=== PATIENT | female | born 1950 | race Hispanic/Latino ===

== ENCOUNTER 2019-05-20 02:22 | Emergency (ER) | payer MEDICARE ==
--- NOTE | 2019-05-20 02:37 | Emergency Department Report ---
- General Stated complaint: WEAKNESS Time Seen by Provider: 05/20/19 02:27 Source: patient, EMS Mode of arrival: Stretcher Limitations: Physical Limitation - History of Present Illness Initial comments: Patient is a 68-year-old female presents to the emergency with generalized weakness. Patient states that her weakness started 1 week ago. Patient states she also developed left facial weakness one week ago. Patient states she also developed left eye droop one week ago. Patient states her symptoms are worsening. Patient states she is always had left-sided weakness for approximately 5 years. Patient denies chest pain. Patient states his past medical history hypertension and her blood pressure is better controlled lately. Patient states she is compliant with all of her medications. MD Complaint: focal weakness -: Sudden, week(s) Consistency: constant, other (worsening) Improves with: none Worsens with: none Associated Symptoms: denies other symptoms. denies: chest pain, confusion, dark stools, diaphoresis, dysuria, easy bruising, fever/chills, headaches, loss of appetite, nausea/vomiting, myalgias, rash, shortness of breath, syncope - Related Data Allergies Allergy/AdvReac Type Severity Reaction Status Date / Time No Known Allergies Allergy Unverified 05/20/19 06:57 ED Review of Systems ROS: Stated complaint: WEAKNESS Other details as noted in HPI Constitutional: weakness. denies: chills, fever Eyes: denies: eye pain, eye discharge, vision change ENT: denies: ear pain, throat pain Respiratory: denies: cough, shortness of breath, wheezing Cardiovascular: denies: chest pain, palpitations Endocrine: no symptoms reported Gastrointestinal: denies: abdominal pain, nausea, diarrhea Genitourinary: denies: urgency, dysuria, discharge Musculoskeletal: denies: back pain, joint swelling, arthralgia Skin: denies: rash, lesions Neurological: weakness. denies: headache, paresthesias Psychiatric: denies: anxiety, depression Hematological/Lymphatic: denies: easy bleeding, easy bruising ED Past Medical Hx - Past Medical History Previous Medical History?: Yes Hx Hypertension: Yes Hx COPD: Yes - Surgical History Past Surgical History?: No - Family History Family history: no significant - Social History Smoking Status: Current Every Day Smoker Substance Use Type: None ED Physical Exam - General Limitations: Physical Limitation General appearance: alert, in no apparent distress - Head Head exam: Present: atraumatic, normocephalic - Eye Eye exam: Present: normal appearance Pupils: Present: unequal - ENT ENT exam: Present: mucous membranes moist - Neck Neck exam: Present: normal inspection - Respiratory Respiratory exam: Present: normal lung sounds bilaterally. Absent: respiratory distress - Cardiovascular Cardiovascular Exam: Present: regular rate, normal rhythm. Absent: systolic murmur, diastolic murmur, rubs, gallop - GI/Abdominal GI/Abdominal exam: Present: soft, normal bowel sounds. Absent: distended, tenderness, guarding - Rectal Rectal exam: Present: deferred - Extremities Exam Extremities exam: Present: normal inspection, full ROM - Back Exam Back exam: Present: normal inspection - Neurological Exam Neurological exam: Present: alert, oriented X3 - Psychiatric Psychiatric exam: Present: normal affect, normal mood - Skin Skin exam: Present: warm, dry, intact, normal color. Absent: rash - Assessment Assessment Interval: Baseline - Level of Consciousness 1a. Level of Consciousness: alert/keenly responsive - LOC Questions 1b. LOC Questions: answers both correctly - LOC Command 1c. LOC Commands: performs tasks correctly - Best Gaze 2. Best Gaze: normal - Visual 3. Visual: no visual loss - Facial Palsy 4. Facial Palsy: partial paralysis - Motor Arm 5a. Motor Arm Left: no drift 5b. Motor Arm Right: no drift - Motor Leg 6a. Motor Leg Left: no drift 6b. Motor Leg Right: no drift - Limb Ataxia 7. Limb Ataxia: absent - Sensory 8. Sensory: normal - Best Language 9. Best Language: no aphasia - Dysarthria 10. Dysarthria: normal - Extinction and Inattention 11. Extinction/Inattention: no abnormality - Scoring Total Score: 2 Stroke Severity: Minor Stroke ED Course Vital Signs 05/20/19 05/20/19 05/20/19 02:30 02:31 02:52 Temperature 98.7 F 98.7 F Pulse Rate 89 65 Respiratory 18 Rate Blood Pressure 212/93 Blood Pressure 198/75 [Left] O2 Sat by Pulse 98 Oximetry 05/20/19 05/20/19 05/20/19 03:32 03:45 03:59 Temperature Pulse Rate 71 62 61 Respiratory Rate Blood Pressure Blood Pressure 212/70 229/56 232/66 [Left] O2 Sat by Pulse Oximetry 05/20/19 05/20/19 05/20/19 04:13 04:16 04:30 Temperature Pulse Rate 62 60 65 Respiratory 19 17 20 Rate Blood Pressure 207/56 Blood Pressure [Left] O2 Sat by Pulse 97 97 97 Oximetry 05/20/19 05/20/19 05/20/19 04:46 05:00 05:15 Temperature Pulse Rate 64 65 75 Respiratory 18 19 20 Rate Blood Pressure 175/48 174/47 175/51 Blood Pressure [Left] O2 Sat by Pulse 97 97 97 Oximetry 05/20/19 05/20/19 05/20/19 05:30 05:45 06:00 Temperature Pulse Rate 65 65 64 Respiratory 18 18 18 Rate Blood Pressure 171/49 182/50 173/51 Blood Pressure [Left] O2 Sat by Pulse 97 97 97 Oximetry 05/20/19 05/20/19 06:15 06:30 Temperature Pulse Rate 65 77 Respiratory 18 11 L Rate Blood Pressure 165/53 153/59 Blood Pressure [Left] O2 Sat by Pulse 97 97 Oximetry - Reevaluation(s) Reevaluation #1: Initial evaluation done. Report received from EMS. Code stroke initiated. Neurology consultation. 05/20/19 02:27 Reevaluation #2: Discussed patient's case with family. Family states the patient's blood pressure has been controlled. Patient's blood pressure is 215/100. Patient was placed on nicardipine drip, to keep blood pressure less than 150. Patient will be given a Keppra dose. 05/20/19 04:09 05/20/19 07:07 Reevaluation #3: I discussed all results in place. Discussed plan of care with patient. Patient agrees with plan of care in transfer. Patient will be transferred to [facility]. 05/20/19 05:14 - Consultations Consultation #1: Discussed case with neurologist. Neurologist recommends CTA of the head for possible subarachnoid. 05/20/19 03:05 Consultation #2: I discussed case with [facility]. Dr. Martin has accepted the patient be transferred to [facility]. 05/20/19 05:03 ED Medical Decision Making - Lab Data Result diagrams: 05/20/19 03:03 05/20/19 03:03 - EKG Data -: EKG Interpreted by Ca EKG shows normal: sinus rhythm, axis, intervals, QRS complexes, ST-T waves Rate: normal - Radiology Data Radiology results: report reviewed CT HEAD WITHOUT CONTRAST INDICATION: STROKE PROTOCOL!! LEFT sided neuro deficit.. TECHNIQUE: All CT scans at this location are performed using CT dose reduction for ALARA by means of automated exposure control. COMPARISON: None available. FINDINGS: HEMORRHAGE: There is acute subarachnoid hemorrhage within the suprasellar c istern extending into the central left temporal and inferior left frontal sulci. EXTRA-AXIAL SPACES: Normal in size and morphology for the patient's age. VENTRICULAR SYSTEM: Normal in size and morphology for the patient's age. BRAIN PARENCHYMA: Bilateral basal ganglia chronic lacunar infarcts are noted. There are deep white matter periventricular hypodensities are likely due to microangiopathy. There is effacement of sulci within the inferior left frontal lobe with loss of stock-white differentiation. MIDLINE SHIFT OR HERNIATION: None. ORBITS: The bilateral optic nerves appear thickened. SOFT TISSUES OF HEAD: Normal. CALVARIUM: Normal. VISUALIZED PARANASAL SINUSES AND MASTOID AIR CELLS: Clear. ADDITIONAL FINDINGS: None. IMPRESSION: 1. Acute subarachnoid hemorrhage in the suprasellar cistern extending into the left frontal and temporal sulci. This could be due to ruptured aneurysm. CTA head should be considered. 2. Sulcal effacement in the inferior left frontal lobe with poor stock-white differentiation can be seen in the setting of early ischemia. CT angio head INDICATION / CLINICAL INFORMATION: 68 years Female; STROKE PROTOCOL!! LEFT sided neuro deficit. LEFT eye won't open Omnipaque 350 / 100ml's was used for this exam.. TECHNIQUE: Thin cut axial images obtained through the head during IV bolus contrast administration. Sagittal, coronal, and 3 plane MIP reconstructions performed by the technologist. NASCET type cri teria used evaluate stenoses. Automated exposure control utilized for radiation reduction purposes. COMPARISON: CT head - 05/20/2019 FINDINGS: INTERNAL CAROTID ARTERIES: There is suggestion of a focal area of narrowing in the anterior genu of the cavernous portion of the right internal carotid artery. No significant narrowing seen of visualized portions of the left internal carotid artery. VERTEBROBASILAR SYSTEM: The proximal basilar artery is not well visualized on this exam and may be congenitally absent. However, the vertebral arteries do appear to connect leftward of midline at the level of the medulla, which raises the possibility of a proximal, long segment occlusion. Given the findings at the origin of the left subclavian artery, I would not be surprised if there is retrograde flow in the left vertebral artery. There are focal areas of mild narrowing in both distal vertebral arteries, most likely related to atherosclerotic disease. DISTAL BRANCHES: Distal branches of the anterior, middle, and posterior cerebral arteries are fairly symmetric in appearance and number. There is a focal area of fusiform dilatation in proximal MCA trifurcation branch on the right. A few areas of focal narrowing are seen in the MCA trifurcations bilaterally, as well as in the proximal A2 segment of the right anterior cerebral artery. ANEURYSM: There is a 4-5 mm posterior communicating artery aneurysm on the left, most likely responsible for patient's subarachnoid hemorrhage, when reviewing the recent head CT. Concerning the right internal carotid artery, there is fusiform dilatation of the vessel in the cavernous portion, as well as the communicating portions, with the vessel measuring up to 6-7 mm in maximum dimension. Similar type findings seen to a lesser degree in the cavernous portion of the left internal carotid artery. ADDITIONAL FINDINGS: Mucous retention cyst/polyps in the left maxillary antrum. There is mild mucosal thickening in the ethmoids. IMPRESSION: 1. 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 2. Areas of fusiform dilatation in both internal carotid arteries, as well as a right MCA trifurcation vessel. 3. 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 I would question the possibility of retrograde flow in the left vertebral artery. 4. Significant narrowing suggested in the anterior genu of the cavernous portion of the right internal carotid artery. CT angio neck INDICATION / CLINICAL INFORMATION: 68 years Female; STROKE PROTOCOL!! LEFT sided neuro deficit. LEFT eye won't open. TECHNIQUE: Thin cut axial images obtained through the head during IV bolus contrast administration. Sagittal, coronal, and 3 plane MIP reconstructions performed by the technologist. NASCET type criteria used evaluate stenoses. All CT scans at this location are performed using CT dose reduction for ALARA by means of automated exposure control. COMPARISON: None available. FINDINGS: ARCH: Bovine arch configuration noted. Significant atherosclerotic disease seen in the arch and great vessels. There is significant atherosclerotic disease at the origin of the left subclavian artery, most likely hemodynamically significant. Fairly significant atherosclerotic disease is seen in the left common carotid artery just distal to its origin. Focal area of mild narrowing is seen in the proximal right innominate artery as well. CAROTID ARTERIES: The visualized common and internal carotid arteries are patent. There are areas of narrowing throughout the left common carotid artery related to atherosclerotic disease. None of the findings appear to be hemodynamically significant. Similar findings seen in the right common carotid artery. Surprisingly, only mild atherosclerotic disease is seen in both of the internal carotid arteries. VERTEBRAL ARTERIES: Slight right dominant vertebral system seen. There are areas of mild narrowing in the proximal, nondominant left vertebral artery, related to atherosclerotic disease. ADDITIONAL FINDINGS: Small nodule seen bilaterally in the thyroid lobes. Follow- up with ultrasound as clinically warranted. Mucous retention cyst/polyps in the left maxillary antrum. IMPRESSION: Significant atherosclerotic disease seen in the great vessels, as described above, particularly at the origin of the left subclavian artery. - Medical Decision Making Patient is a 68-year-old female XS emergency with generalized weakness and left- sided facial droop. Code stroke initiated mutely upon arrival. Patient has plain CT done of the head and it showed a subarachnoid hemorrhage. Patient had a CTA of the head which confirmed the ruptured aneurysm. Patient being transferred to [facility] for neurosurgery support. Patient also found to have elevated low-pressure and blood pressure consistent with malignant hypertension and patient was placed on nicardipine drip. Patient also given Keppra for seizure prevention. Patient slabs since unremarkable. Patient will be transferred via ground EMS. - Differential Diagnosis ICH, SDH. SAH. CVA. Weakness, facial droop Critical Care Time: Yes Critical care time in (mins) excluding proc time.: 55 Critical care attestation.: If time is entered above; I have spent that time in minutes in the direct care of this critically ill patient, excluding procedure time. 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
--- NOTE | 2019-05-20 02:58 | Emergency Department Report ---
ED Neuro Deficit HPI - General Chief Complaint: Neuro Symptoms/Deficit Stated Complaint: WEAKNESS Time Seen by Provider: 05/20/19 02:27 Source: patient, EMS Mode of arrival: Stretcher Limitations: Physical Limitation - History of Present Illness Initial Comments: [employer] [facility] Date of Service: 05/20/2019 02:35:27 Impression: RO Acute Ischemic Stroke Comments: 1 week of L facial droop and L CN3 palsy - DDx L midbrain stroke vs isolated CN3 palsy from nerve infarct vs CN3 palsy from aneurysm. Recommend admission for MRI/A head/neck and inpatient neuro consult. . Mechanism of Stroke: Possible Thromboembolic Possible Cardioembolic Small Vessel Disease Metrics: Last Known Well: 05/13/2019 12:00:00 [employer] Notification Time: 05/20/2019 02:34:54 Arrival Time: 05/20/2019 02:22:00 Stamp Time: 05/20/2019 02:35:27 Time First Login Attempt: 05/20/2019 02:42:25 Video Start Time: 05/20/2019 02:42:25 Symptoms: facial droop NIHSS Start Assessment Time: 05/20/2019 02:49:25 Patient is not a candidate for tPA. Patient was not deemed candidate for tPA thrombolytics because of Last Well Known Above 4.5 Hours. Video End Time: 05/20/2019 02:54:32 CT head showed no acute hemorrhage or acute core infarct. CT head was reviewed. Advanced imaging CTA head and neck obtained. ED Physician notified of diagnostic impression and management plan on 05/20/2019 02:54:34 Our recommendations are outlined below. Recommendations: Activate Stroke Protocol Admission/Order Set Stroke/Telemetry Floor Neuro Checks Bedside Swallow Eval DVT Prophylaxis IV Fluids, Normal Saline Head of Bed Below 30 Degrees Euglycemia and Avoid Hyperthermia (PRN Acetaminophen) start ASA if CT head is neg for hemorrhage. Recommended Scan: MRA Head and Neck Without Contrast When Available - Stroke Protocol Lipid Panel to Be Obtained, if Not Done in the Last Three Months Therapies: Physical Therapy, Occupational Therapy, Speech Therapy Assessment When Applicable Dysphaghia Screen: Swallow Evaluation, Bedside NPO Until Swallow Evaluation DVT prophylaxis: SCDs, Pneumatic Compression Disposition: Follow up with Teleneurology Follow up Sign Out: Discussed with Emergency Department Provider History of Present Illness: Patient is a 68 year old Female. 68 yo woman who fell 2 weeks ago and has left sided weakness since that time. She left eye is dilated and she is unable to open the left eye. CT head showed no acute hemorrhage or acute core infarct. CT head was reviewed. Examination: 1A: Level of Consciousness - Alert; keenly responsive + 0 1B: Ask Month and Age - Both Questions Right + 0 1C: Blink Eyes & Squeeze Hands - Performs Both Tasks + 0 2: Test Horizontal Extraocular Movements - Normal + 0 3: Test Visual Carballo - No Visual Loss + 0 4: Test Facial Palsy (Use Grimace if Obtunded) - Minor paralysis (flat nasolabial fold, smile asymetry) + 1 5A: Test Left Arm Motor Drift - No Drift for 10 Seconds + 0 5B: Test Right Arm Motor Drift - No Drift for 10 Seconds + 0 6A: Test Left Leg Motor Drift - No Drift for 5 Seconds + 0 6B: Test Right Leg Motor Drift - No Drift for 5 Seconds + 0 7: Test Limb Ataxia (FNF/Heel-Oliver) - No Ataxia + 0 8: Test Sensation - Normal; No sensory loss + 0 9: Test Language/Aphasia - Normal; No aphasia + 0 10: Test Dysarthria - Normal + 0 11: Test Extinction/Inattention - No abnormality + 0 NIHSS Score: 1 Patient was informed the Neurology Consult would happen via TeleHealth consult by way of interactive audio and video telecommunications and consented to rec eiving care in this manner. Due to the immediate potential for life-threatening deterioration due to underlying acute neurologic illness, I spent 35 minutes providing critical care. This time includes time for face to face visit via telemedicine, review of medical records, imaging studies and discussion of findings with providers, the patient and/or family. Dr Enmanuel [place] [employer] Case [id number] - Related Data Allergies/Adverse Reactions: Allergies Allergy/AdvReac Type Severity Reaction Status Date / Time Unable to Assess Allergy Unverified 05/20/19 02:37 ED Review of Systems ROS: Stated complaint: WEAKNESS Other details as noted in HPI Constitutional: weakness. denies: chills, fever Eyes: denies: eye pain, eye discharge, vision change ENT: denies: ear pain, throat pain Respiratory: denies: cough, shortness of breath, wheezing Cardiovascular: denies: chest pain, palpitations Endocrine: no symptoms reported Gastrointestinal: denies: abdominal pain, nausea, diarrhea Genitourinary: denies: urgency, dysuria, discharge Musculoskeletal: denies: back pain, joint swelling, arthralgia Skin: denies: rash, lesions Neurological: weakness. denies: headache, paresthesias Psychiatric: denies: anxiety, depression Hematological/Lymphatic: denies: easy bleeding, easy bruising ED Past Medical Hx - Past Medical History Hx Hypertension: Yes Hx Diabetes: Yes Additional medical history: Left FX - Social History Smoking Status: Unknown if ever smoked Substance Use Type: None ED Neuro Physical Exam - General Limitations: Physical Limitation General appearance: alert, in no apparent distress Suspected Stroke: Yes - NIHSS Assessment Interval: Baseline 1a. Level of Consciousness: alert/keenly responsive 1b. LOC Questions: answers both correctly 1c. LOC Commands: performs tasks correctly 2. Best Gaze: normal 3. Visual: no visual loss 4. Facial Palsy: minor paralysis 5b. Motor Arm Right: no drift 5a. Motor Arm Left: no drift 6a. Motor Leg Left: no drift 6b. Motor Leg Right: no drift 7. Limb Ataxia: absent 8. Sensory: normal 9. Best Language: no aphasia 10. Dysarthria: normal 11. Extinction/Inattention: no abnormality Total Score: 1 Stroke Severity: Minor Stroke ED Course Vital Signs 05/20/19 02:31 Pulse Rate 89 Blood Pressure 212/93 Critical care attestation.: If time is entered above; I have spent that time in minutes in the direct care of this critically ill patient, excluding procedure time. 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
--- NOTE | 2019-05-20 03:08 | Cat Scan Report ---
CT HEAD WITHOUT CONTRAST INDICATION: STROKE PROTOCOL!! LEFT sided neuro deficit.. TECHNIQUE: All CT scans at this location are performed using CT dose reduction for ALARA by means of automated e xposure control. COMPARISON: None available. FINDINGS: HEMORRHAGE: There is acute subarachnoid hemorrhage within the suprasellar cistern extending into the central left temporal and inferior left frontal sulci. EXTRA-AXIAL SPACES: Normal in size and morphology for the patient's age. VENTRICULAR SYSTEM: Normal in size and morphology for the patient's age. BRAIN PARENCHYMA: Bilateral basal ganglia chronic lacunar infarcts are noted. There are deep white ma tter periventricular hypodensities are likely due to microangiopathy. There is effacement of sulci wi thin the inferior left frontal lobe with loss of stock-white differentiation. MIDLINE SHIFT OR HERNIATION: None. ORBITS: The bilateral optic nerves appear thickened. SOFT TISSUES OF HEAD: Normal. CALVARIUM: Normal. VISUALIZED PARANASAL SINUSES AND MASTOID AIR CELLS: Clear. ADDITIONAL FINDINGS: None. IMPRESSION: 1. Acute subarachnoid hemorrhage in the suprasellar cistern extending into the left frontal and tempo ral sulci. This could be due to ruptured aneurysm. CTA head should be considered. 2. Sulcal effacement in the inferior left frontal lobe with poor stock-white differentiation can be se en in the setting of early ischemia. Code stroke Time of report 2:01 AM central Person receiving report: Dr. Thibodeaux Signer Name: Lawrence Payne MD Signed: 05/20/2019 3:04 AM Workstation Name: [id number]
[2019-05-20 03:23] LABS: Basophils # (Auto) 0.1 K/mm3 (0.0-0.1); Basophils % (Auto) 0.7 % (0.0-1.8); Eosinophils % (Auto) 0.2 % (0.0-4.3); Hematocrit 37.5 % (30.3-42.9); Hemoglobin 12.6 gm/dl (10.1-14.3); Mean Corpuscular HGB Conc 34 % (30-34); Mean Corpuscular Volume 88 fl (79-97); Monocytes # (Auto) 0.7 K/mm3 (0.0-0.8); Monocytes % (Auto) 5.4 % (0.0-7.3); Platelet Count 294 K/mm3 (140-440); Red Blood Count 4.26 M/mm3 (3.65-5.03); Red Cell Distribution Width 13.2 % (13.2-15.2)
[2019-05-20 03:32] LABS: INR 0.95 (0.87-1.13)
[2019-05-20 03:33] LABS: Partial Thromboplastin Time 25.1 Sec. (24.2-36.6)
[2019-05-20 03:34] LABS: BUN/Creatinine Ratio 28; Blood Urea Nitrogen 14 mg/dL (7-17); Calcium 9.2 mg/dL (8.4-10.2); Hemolysis Index 30
[2019-05-20] MEDS ORDERED: levETIRAcetam 1000 MG/NS 0.75% 1,000 MG/100 ML BAG IV ONE (04:08)
--- NOTE | 2019-05-20 04:45 | Cat Scan Report ---
CT angio neck INDICATION / CLINICAL INFORMATION: 68 years Female; STROKE PROTOCOL!! LEFT sided neuro deficit. LEFT eye won't open. TECHNIQUE: Thin cut axial images obtained through the head during IV bolus contrast administration. S agittal, coronal, and 3 plane MIP reconstructions performed by the technologist. NASCET type criteria used evaluate stenoses. All CT scans at this location are performed using CT dose reduction for ALAR A by means of automated exposure control. COMPARISON: None available. FINDINGS: ARCH: Bovine arch configuration noted. Significant atherosclerotic disease seen in the arch and great vessels. There is significant atherosclerotic disease at the origin of the left subclavian artery, most likely hemodynamically significant. Fairly significant atherosclerotic disease is seen in the left common c arotid artery just distal to its origin. Focal area of mild narrowing is seen in the proximal right i nnominate artery as well. CAROTID ARTERIES: The visualized common and internal carotid arteries are patent. There are areas of narrowing throughout the left common carotid artery related to atherosclerotic dis ease. None of the findings appear to be hemodynamically significant. Similar findings seen in the rig ht common carotid artery. Surprisingly, only mild atherosclerotic disease is seen in both of the internal carotid arteries. VERTEBRAL ARTERIES: Slight right dominant vertebral system seen. There are areas of mild narrowing in the proximal, nondominant left vertebral artery, related to atherosclerotic disease. ADDITIONAL FINDINGS: Small nodule seen bilaterally in the thyroid lobes. Follow-up with ultrasound as clinically warranted. Mucous retention cyst/polyps in the left maxillary antrum. IMPRESSION: Significant atherosclerotic disease seen in the great vessels, as described above, partic ularly at the origin of the left subclavian artery. Signer Name: Maximo Rizo MD, III Signed: 05/20/2019 4:41 AM Workstation Name: [id number]
[2019-05-20] MEDS ORDERED: niCARdipine 50 MG in SODIUM CHLORIDE 0.9% 250ML 230 ML IV SCH (05:00)
--- NOTE | 2019-05-20 05:07 | Cat Scan Report ---
CT angio head INDICATION / CLINICAL INFORMATION: 68 years Female; STROKE PROTOCOL!! LEFT sided neuro deficit. LEFT eye won't open Omnipaque 350 / 100 ml's was used for this exam.. TECHNIQUE: Thin cut axial images obtained through the head during IV bolus contrast administration. S agittal, coronal, and 3 plane MIP reconstructions performed by the technologist. NASCET type criteria used evaluate stenoses. Automated exposure control utilized for radiation reduction purposes. COMPARISON: CT head - 05/20/2019 FINDINGS: INTERNAL CAROTID ARTERIES: There is suggestion of a focal area of narrowing in the anterior genu of t he cavernous portion of the right internal carotid artery. No significant narrowing seen of visualize d portions of the left internal carotid artery. VERTEBROBASILAR SYSTEM: The proximal basilar artery is not well visualized on this exam and may be co ngenitally absent. However, the vertebral arteries do appear to connect leftward of midline at the le oc of the medulla, which raises the possibility of a proximal, long segment occlusion. Given the fin dings at the origin of the left subclavian artery, I would not be surprised if there is retrograde fl ow in the left vertebral artery. There are focal areas of mild narrowing in both distal vertebral arteries, most likely related to ath erosclerotic disease. DISTAL BRANCHES: Distal branches of the anterior, middle, and posterior cerebral arteries are fairly symmetric in appearance and number. There is a focal area of fusiform dilatation in proximal MCA trifurcation branch on the right. A few areas of focal narrowing are seen in the MCA trifurcations bilaterally, as well as in the proximal A2 segment of the right anterior cerebral artery. ANEURYSM: There is a 4-5 mm posterior communicating artery aneurysm on the left, most likely responsi ble for patient's subarachnoid hemorrhage, when reviewing the recent head CT. Concerning the right internal carotid artery, there is fusiform dilatation of the vessel in the gaby nous portion, as well as the communicating portions, with the vessel measuring up to 6-7 mm in maximu m dimension. Similar type findings seen to a lesser degree in the cavernous portion of the left inter nal carotid artery. ADDITIONAL FINDINGS: Mucous retention cyst/polyps in the left maxillary antrum. There is mild mucosal thickening in the ethmoids. IMPRESSION: 1. 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 2. Areas of fusiform dilatation in both internal carotid arteries, as well as a right MCA trifurcatio n vessel. 3. 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 I would question the possibility of retro grade flow in the left vertebral artery. 4. Significant narrowing suggested in the anterior genu of the cavernous portion of the right interna l carotid artery. Signer Name: Maximo Rizo MD, III Signed: 05/20/2019 5:03 AM Workstation Name: [facility]ALLynkR[facility] [id number]
[2019-05-20 07:09] VITALS: BP 164/52
== END 2019-05-20 07:07 | disposition other institution (70) ==
LOC: ED 02:22
DX: S04.1 Injury of oculomotor nerve (principal); I60.9 Nontraumatic subarachnoid hemorrhage, unspecified; I10 Essential (primary) hypertension; R29.810 Facial weakness; J44.9 Chronic obstructive pulmonary disease, unspecified; F17.200 Nicotine dependence, unspecified, uncomplicated; X58.XXXA Exposure to other specified factors, initial encounter; Y93.89 Activity, other specified; Y92.89 Other specified places as the place of occurrence of the external cause; Y99.8 Other external cause status
CPT/HCPCS: 36415; 70450; 70496; 70498; 80048; 82962; 84484; 85025; 85610; 85670; 85730; 93005; 93010; 96365; 96366; 96368; 99291; J1953; J7050; Q9967; 96367